=== PATIENT | female | born 1955 | race Caucasian/White ===

== ENCOUNTER → 2020-12-14 | Outpatient (CLI) | payer OTHER ==
[~2020-12-14] VITALS: Ht 160 cm; Wt 113.0 kg
[~2020-12-14] MED LIST: CATHETER FLUSH 10 ML SYR IV PRN; REGADENOSON 0.4 MG/5 ML SYR (LEXISCAN) IV ONE
[2020-12-14 08:57] VITALS: BP 171/88
--- NOTE | 2020-12-14 11:36 | STRESS TEST ---
DATE OF SERVICE: 12/14/2020 RESTING AND POST REGADENOSON TECHNETIUM-99M TETROFOSMIN SPECT CT IMAGING ORDERING PHYSICIAN: Dr. Dawn. PRIMARY PHYSICIAN: Dr. Hdez. CLINICAL DIAGNOSES: Shortness of breath. Baseline images were carried out after injection of 10.34 mCi of technetium-99m Tetrofosmin. This was followed by 0.4 mg regadenoson and 30.9 mCi of technetium-99m Tetrofosmin for stress imaging. The electrocardiogram showed atrial fibrillation throughout the study. Ventricular rate averaged at approximately 100 beats per minute. Isolated premature ventricular contractions were seen. The patient tolerated the procedure well and did not report significant symptoms. Review of images at rest and following stress indicates a transient anteroapical perfusion defect. Gated images show normal global left ventricular systolic function with normal regional wall motion. Left ventricular ejection fraction is calculated to be 73%. Left ventricular end diastolic volume is 81 mL. TID is absent (0.99). CONCLUSIONS: 1. The study is suggestive of a moderate amount of anteroapical ischemia. 2. Well preserved global left ventricular systolic function without significant regional wall motion abnormality and with an ejection fraction approximately 73%. Job ID: [id number] DocumentID: [id number] Dictated Date: 12/14/2020 11:19:11 Home Furnishings Sales Representative Date: 12/14/2020 11:36:16 Dictated By: ELSI DAWN MD, MA, FACP, FACC,
== END ==
LOC: CARD 07:45
PROVIDERS: ATTEND Internal Medicine Cardiovascular Disease
DX: R06.02 Shortness of breath (principal)
CPT/HCPCS: 78452; 93017; A9502

== ENCOUNTER → 2020-12-16 | Outpatient (CLI) | payer OTHER | LOC: CARD 10:22 | PROVIDERS: ATTEND Internal Medicine Cardiovascular Disease | DX: I48.0 Paroxysmal atrial fibrillation (principal); I51.7 Cardiomegaly | CPT/HCPCS: 93225; 93226; 93306 ==

== ENCOUNTER 2020-12-21 08:00 | Day surgery (SDC) | payer OTHER ==
[2020-12-21] VITALS (9 sets, daily range): BP systolic 116–191; BP diastolic 60–91
[~2020-12-21] VITALS: Ht 160 cm; Wt 114.0 kg
[2020-12-21 07:38] LABS: HEMOGLOBIN 14.1 g/dL (11.5-16.0); MEAN PLATELET VOLUME 10.2 fL (9.0-12.2); WHITE BLOOD COUNT 9.2 10^3/uL (4.3-11.0)
[2020-12-21 07:52] LABS: PROTHROMBIN TIME PATIENT 13.5 SEC (12.2-14.7)
[2020-12-21 08:00] LABS: ALANINE AMINOTRANSFERASE 14 U/L (0-55); ALBUMIN 3.9 GM/DL (3.2-4.5); ALKALINE PHOSPHATASE 118 U/L (40-136); BILIRUBIN,TOTAL 0.9 MG/DL (0.1-1.0); BUN/CREATININE RATIO 13; CALCIUM 8.8 MG/DL (8.5-10.1); CARBON DIOXIDE 21 MMOL/L (21-32); CHLORIDE 106 MMOL/L (98-107); CHOLESTEROL 196 MG/DL (< 200); CREATININE SERUM 0.75 MG/DL (0.60-1.30); GFR ESTIMATED > 60; GLUCOSE 113 MG/DL (70-105); HDL CHOLESTEROL 65 MG/DL (40-60); POTASSIUM 3.8 MMOL/L (3.6-5.0); SODIUM 142 MMOL/L (135-145); TOTAL PROTEIN 7.1 GM/DL (6.4-8.2); TRIGLYCERIDES 74 MG/DL (<150); VLDL CHOLESTEROL 15 MG/DL (5-40)
[~2020-12-21 08:00] MED LIST changes: +APIX5TAB PO; -CATHETER FLUSH 10 ML SYR IV PRN; +HEParin (CATH LAB) 2,000 ML IV ONE; +LIDOCAINE 1% INJ 20 ML 20 ML VIAL ONE; +METO-352 PO; +NAPR500T8 PO; +NS IV 1000 ML 1,000 ML IV SCH; +NS IV 1000 ML 1,000 ML ONE; -REGADENOSON 0.4 MG/5 ML SYR (LEXISCAN) IV ONE; +SERT-413 PO
[2020-12-21] MEDS ORDERED: fentaNYL INJECTION 100 MCG/2 ML AMP ONE (08:14)
[2020-12-21] MEDS ORDERED: MIDAZOLAM 5 MG/5 ML (VERSED) VIAL ONE (08:14)
--- NOTE | 2020-12-21 09:05 | Cardiac Procedure Note-CS/ASA ---
Pre-Procedure Note Pre-Op Procedure Note H&P Reviewed The H&P was reviewed, patient examined and no changes noted. Date H&P Reviewed: Dec 21, 2020 Time H&P Reviewed: 08:35 Conscious Sedation Pre-Proced Time 08:35 ASA Score 3 For ASA 3 and 4: Consider anesthesia and medical clearance. Also, for patients with a history of failed moderate sedation consider anesthesia. Airway Lungs Heart ASA score ASA 1: a normal healthy patient ASA 2: a patient with a mild systemic disease (mid diabetes, controlled hypertension, obesity ASA 3: a patient with a severe systemic disease that limits activity (angina, COPD, prior Myocardial infarction) ASA 4: a patient with an incapacitating disease that is a constant threat to life (CHF, renal failure) ASA 5: a moribund patient not expected to survive 24 hrs. (ruptured aneurysm) ASA 6: a declared brain- patient whose organs are being harvested. For emergent operations, add the letter E after the classification Mallampati Classification Grade 2 Sedation Plan Analgesia, Amnesia, Plan communicated to team members, Discussed options with patient/fam, Discussed risks with patient/fam The patient is an appropriate candidate to undergo the planned procedure, sedation, and anesthesia. The patient immediately re-assessed prior to indication. ELSI WALDROP MD FACP FAC CCDS Dec 21, 2020 09:05
--- NOTE | 2020-12-21 09:07 | Discharge Inst-Cardiology ---
Discharge Inst-Cardiac Discharge Medications Continued Medications: Apixaban (Eliquis) 5 Mg Tablet 5 MG PO BID, TAB Metoprolol Succinate (Toprol Xl) 50 Mg Tab.er.24h 50 MG PO DAILY, TAB Sertraline HCl (Sertraline HCl) 50 Mg Tablet 50 MG PO HS, TAB Discontinued Medications: Naproxen (Naproxen) 500 Mg Tablet.dr 500 MG PO BID PRN for PAIN-MILD (1-4), TAB ELSI WALDROP MD FACP FACC CCDS Dec 21, 2020 09:07
--- NOTE | 2020-12-21 09:08 | Discharge Inst-Post CATH ---
Discharge Inst-CATH/EP Post Cardiac Cath/EP D/C Inst Follow Up/Plan F/u with Dr Dawn in 2 weeks ACTIVITY * Go Home directly and rest. * Limit activity of the leg (or wrist if it was used) for 7 days including aerobics, swimming, jogging, bicycling, etc. * Restrict stair-climbing for 7 days if possible, if not, climb up with your no n-cath leg, then bring together on the same step. * Avoid lifting, pushing, pulling or excessive movement of the affected ext remity for 7 days. * Customary sexual activity may be resumed after 2 days-use caution not to use a position that strains or causes pain to the affected extremity. * No driving for 24 hours. * NO SMOKING. * Avoid straining for bowel movements for 7 days. * Gentle walking on level ground is allowed. * Returning to work will depend on the type of procedure and the results. Your doctor will discuss this with you. CALL YOUR DOCTOR FOR ANY OF THE FOLLOWING: *If bleeding from the puncture site occurs- Apply gentle pressure to site with clean cloth and call your doctor or EMS. * If a knot or lump forms under the skin, increases in size, or causes pain. * If bruising appears to be worsening or moving further down your leg instead of disappearing. * Temperature above 101 F. CARE OF YOUR GROIN INCISION; * Bruising or purple discoloration of the skin near the puncture site is common. * You may shower only, no bathtub bathing for 5 days. Be careful to avoid slipping as your leg may feel stiff. * If a closure device was used on your femoral artery, please see the attached guide regarding care of the device and your leg. * Leave dressing on FOR 24 hours. CARE OF YOUR WRIST INCISION; * Bruising or purple discoloration of the skin near the puncture site is common. * You may shower. * DO NOT submerge wrist. * Leave dressing on FOR 24 hours. ELSI DAWN MD FACP FAC CCDS Dec 21, 2020 09:08
[2020-12-21] MEDS ORDERED: PATIENT MAY USE OWN MEDS, ALL PO SCH (09:15)
[2020-12-21] MEDS ORDERED: NS IV 1000 ML 1,000 ML IV SCH (09:15)
--- NOTE | 2020-12-21 10:46 | CARDIAC CATHETERIZATION ---
DATE OF SERVICE: 12/21/2020 CARDIAC CATHETERIZATION REPORT INDICATION FOR PROCEDURE: The patient is a 65-year-old lady, who has chest discomfort and shortness of breath and a recent myocardial perfusion imaging study was indicative of anteroapical ischemia. Cardiac catheterization was carried out after having obtained an informed consent. DESCRIPTION OF PROCEDURE: She was brought to the cardiac catheterization laboratory in a fasting state. Right groin was prepared and draped in the usual sterile fashion. Lidocaine 1% was used for local anesthesia. Modified Seldinger technique was used to advance a 5-English sheath in the right femoral artery, 5-English JL3.5 catheter was used for left coronary angiography. A 5-English JR4 catheter was used for right coronary angiography, a 5-English JR4 catheter was also used for left heart catheterization and left ventricular angiography. Following removal of the catheters, angiography of the right femoral artery was carried out through the sheath. Mynx was used to achieve hemostasis. She tolerated the procedure well. HEMODYNAMICS: Left ventricular end-diastolic pressure following coronary angiography was 16 mmHg. There is no significant pressure gradient on pullback across the aortic valve. The ascending aortic pressure was 103/68 with a mean of 81 mmHg. CORONARY ANGIOGRAPHY: Left main coronary artery, left circumflex artery, left anterior descending artery, and right coronary artery do not exhibit angiographically significant disease. Right coronary artery is dominant. LEFT VENTRICULAR ANGIOGRAPHY: Left ventricular angiography was carried out in the right anterior oblique projection only. Global left ventricular systolic function appears to be normal. Left ventricular ejection fraction is estimated to be 55% to 60%. CONCLUSIONS: 1. No angiographically significant coronary artery disease seen on this study. 2. Normal global left ventricular systolic function with an ejection fraction of 55% to 60%. 3. Mild elevation of left ventricular end-diastolic pressure. DISCUSSION AND RECOMMENDATIONS: Based on the results of the study, it appears appropriate to continue a conservative approach. Risk factor modification has been reviewed. Outpatient followup is advised. Her myocardial perfusion imaging study appears to have been a false positive study. Job ID: [id number] DocumentID: [id number] Dictated Date: 12/21/2020 09:19:25 Director Of Music Date: 12/21/2020 10:45:17 Dictated By: ELSI WALDROP MD, MA, FACP, FACC,
== END 2020-12-21 12:10 | disposition home or self-care (01) ==
LOC: CATH 08:00 → SDC 09:24 → CATH 12:10
PROVIDERS: ATTEND Internal Medicine Cardiovascular Disease
DX: I48.0 Paroxysmal atrial fibrillation (principal); R07.89 Other chest pain; I10 Essential (primary) hypertension; E78.2 Mixed hyperlipidemia; E66.9 Obesity, unspecified; G47.33 Obstructive sleep apnea (adult) (pediatric); R94.31 Abnormal electrocardiogram [ECG] [EKG]; R60.0 Localized edema; G89.29 Other chronic pain; M25.561 Pain in right knee; Z79.01 Long term (current) use of anticoagulants; Z83.3 Family history of diabetes mellitus; Z68.42 Body mass index [BMI] 45.0-49.9, adult; Z79.1 Long term (current) use of non-steroidal anti-inflammatories (NSAID); Z79.899 Other long term (current) drug therapy; Z88.8 Allergy status to other drugs, medicaments and biological substances; Z90.49 Acquired absence of other specified parts of digestive tract; Z98.890 Other specified postprocedural states
CPT/HCPCS: 80053; 80061; 85027; 85610; 85730; 87081; 93458; C1760; C1894; 36415

== ENCOUNTER 2022-09-22 09:38 | Outpatient (CLI) | payer OTHER ==
[~2022-09-22 09:38] MED LIST changes: -HEParin (CATH LAB) 2,000 ML IV ONE; -LIDOCAINE 1% INJ 20 ML 20 ML VIAL ONE; -NS IV 1000 ML 1,000 ML IV SCH; -NS IV 1000 ML 1,000 ML ONE
== END 2022-09-22 10:00 ==
LOC: SLEEP 09:38
PROVIDERS: ATTEND Otolaryngology Otolaryngology/Facial Plastic Surgery
DX: G47.33 Obstructive sleep apnea (adult) (pediatric) (principal); Z86.79 Personal history of other diseases of the circulatory system
CPT/HCPCS: G0399

== ENCOUNTER 2022-11-28 19:50 | Emergency (ER) | payer OTHER ==
[~2022-11-28] VITALS: Ht 160 cm; Wt 109.0 kg
--- NOTE | 2022-11-28 20:50 | Diagnostic Imaging Report ---
PROCEDURE: CT head and CT cervical spine without contrast. TECHNIQUE: Multiple contiguous axial images were obtained through the brain and cervical spine without the use of intravenous contrast. Sagittal and coronal reformations through the cervical spine were then performed. Auto Exposure Controls were utilized during the CT exam to meet ALARA standards for radiation dose reduction. INDICATION: Fall, head injury, neck injury COMPARISON: None FINDINGS: CT HEAD: The ventricles and cortical sulci are mildly prominent from generalized parenchymal volume loss. There is no midline shift or mass effect. No acute intracranial hemorrhage or CT evidence of acute territorial ischemia is seen. The calvarium appears intact. There is hyperostosis frontalis. There is rtupawjd-wy-cjwsdi mucosal thickening in the ethmoid and maxillary sinuses. There is mild mucosal thickening in the sphenoid sinuses. CT cervical spine: Alignment of the cervical spine appears normal, although the patient's head is rotated to the left. There are arkvuysc-jb-nprljw degenerative changes at C4-C5, C5-C6 and C6-C7 with prominent anterior and posterior osteophytes. Osteophytosis does appear to cause spinal canal stenosis at C5-C6 and C6-C7. No acute fracture is seen in the cervical spine. No bony fragments or hyperdense fluid collections are seen. Soft tissues about the cervical spine demonstrate no acute abnormality. There is a right thyroid nodule measuring 2.6 cm. IMPRESSION: 1. No acute intracranial hemorrhage or CT evidence of acute territorial ischemia. 2. Advanced degenerative changes in the cervical spine with no acute fracture seen. 3. Paranasal sinus disease. 4. Right thyroid nodule. This warrants nonemergent ultrasound follow-up. Dictated by: Dictated on workstation # [id number]
--- NOTE | 2022-11-28 20:57 | Diagnostic Imaging Report ---
HISTORY: Fall with right chest pain COMPARISON: None TECHNIQUE: Frontal view of the chest FINDINGS: Lung volumes are mildly low. No consolidation is seen. Haziness over the lungs is thought to be due to overlying soft tissue. The cardiac silhouette is mildly prominent. No displaced fractures are identified. IMPRESSION: 1. No acute pulmonary abnormality seen. 2. Mild cardiomegaly, may be accentuated by technique. Dictated by: Dictated on workstation # [id number]
--- NOTE | 2022-11-28 21:16 | ED Fall/Injury ---
General Chief Complaint: Trauma-Non Activation Stated Complaint: FALL Nursing Triage Note: TO ED VIA [facility] FROM WORK WHERE SHE FELL SIDEWAYS OUT OF CHAIR AFTER IT BROKE AND HIT HEAD. SHE STATES INITIALLY BACK OF HEAD HURT, BUT NOW MORE RIGHT SIDE HEAD PAIN. C COLLAR IN PLACE ON ARRIVAL TO ER. C/O LEFT CHRONIC LEFT KNEE PAIN THAT IS WORSE NOW, RIGHT RIB PAIN, AND BACK PAIN. DENIES INITIAL LOC, BUT STAFF STATE SHE "PASSED OUT" AFTER WARDS FOR A SHORT AMOUNT OF TIME. HX AFIB AND TAKES ELIQUIS BID. Source: patient, EMS Exam Limitations: no limitations History of Present Illness Date Seen by Provider: Nov 28, 2022 Time Seen by Provider: 19:55 Initial Comments Patient is a 67-year-old female who presents to the emergency department for evaluation of head and right chest after she fell sideways out of a chair at work. She did not lose consciousness at the time of the injury but reportedly "passed out" shortly afterwards per fellow staff at her work. She states her only main pain is a generalized headache. States she also has some mild left knee pain but states this is chronic. Denies any other pain or injury at this time. Allergies and Home Medications Allergies Coded Allergies: diphenhydramine (Unverified Allergy, Unknown, 12/14/20) phenytoin (Verified Allergy, Unknown, 11/28/22) Patient Home Medication List Home Medication List Reviewed: Yes Apixaban (Eliquis) 5 Mg Tablet, 5 MG PO BID, (Reported) Entered as Reported by: ALY TAPIA on 12/21/20734 Metoprolol Succinate (Toprol Xl) 50 Mg Tab.er.24h, 50 MG PO DAILY, (Reported) Entered as Reported by: ALY TAPIA on 12/21/20734 Sertraline HCl (Sertraline HCl) 50 Mg Tablet, 50 MG PO HS, (Reported) Entered as Reported by: ALY TAIPA on 12/21/20734 Review of Systems Review of Systems Constitutional: no symptoms reported Eyes: No Symptoms Reported Ears, Nose, Mouth, Throat: no symptoms reported Respiratory: no symptoms reported Cardiovascular: see HPI, chest pain Gastrointestinal: no symptoms reported Genitourinary: no symptoms reported Musculoskeletal: no symptoms reported Skin: no symptoms reported Psychiatric/Neurological: See HPI, Headache Past Fnautyc-Ffbuev-Yjmiro Hx Patient Social History Tobacco Use?: No Substance use?: No Alcohol Use?: No Immunizations Up To Date Influenza Vaccine Up-to-Date: Yes; Up-to-Date COVID19 Vaccine Financial Counselor: [place] Past Medical History Section, Gallbladder Respiratory: No Currently Using CPAP: No Currently Using BIPAP: No Cardiac: Yes Atrial Fibrillation, High Cholesterol, Hypertension Neurological: No Genitourinary: No Gastrointestinal: No Cancer: No Physical Exam Vital Signs Vital Signs - First Documented 11/28/22 19:52 Temp 36.1 Pulse 95 Resp 16 B/P (MAP) 163/98 (119) O2 Delivery Room Air Capillary Refill : Less Than 3 Seconds Height, Weight, BMI Height: '" Weight: lbs. oz. kg; 42.00 BMI Method: General Appearance: WD/WN, no apparent distress HEENT: PERRL/EOMI, normal ENT inspection, TMs normal, pharynx normal Neck: non-tender, full range of motion, supple, normal inspection Cardiovascular: regular rate, rhythm Respiratory: lungs clear, normal breath sounds, no respiratory distress, no accessory muscle use Gastrointestinal: normal bowel sounds, non tender, soft Neurologic/Psychiatric: no motor/sensory deficits, alert, normal mood/affect, oriented x 3 Skin: normal color, warm/dry Mild anterolateral right chest wall tenderness to palpation Osborne Coma Score Best Eye Response: (4) Open Spontaneously Best Verbal Response: (5) Oriented Best Motor Response: (6) Obeys Commands Faustina Total: 15 Progress/Results/Core Measures Results/Orders My Orders Orders - MASSIEL REYNOSO APRN Chest 1 View, Ap/Pa Only (11/28/22 20:00) Ct Head/Cervical Spine Wo (11/28/22 20:00) Vital Signs/I&O 11/28/22 11/28/22 19:52 19:52 Temp 36.1 Pulse 95 Resp 16 B/P (MAP) 163/98 (119) O2 Delivery Room Air Room Air Blood Pressure Mean: 119 Progress Progress Note : Progress Note Patient is nontoxic and well-hydrated on exam. No focal neurologic deficits appreciated. Vital signs are reassuring. No significant hematoma or crepitus noted to the scalp. Patient does have a c-collar on that was placed by EMS. No adventitious lung sounds or increased work of breathing noted. Order placed for head/C-spine CT as well as chest x-ray. Head/C-spine CT acutely negative. There is an incidental notation of a thyroid nodule but patient states she is already aware of this and is being monitored by her PCP. Chest x-ray is acutely negative. Will discharge home with recommendations for supportive care and close follow-up with PCP. Return precautions for urgent symptomology discussed. Patient verbalized understanding. Departure Impression Primary Impression: Closed head injury Qualified Codes: S09.90XA - Unspecified injury of head, initial encounter Disposition: 01 HOME, SELF-CARE Condition: Stable Departure-Patient Inst. Decision time for Depature: 21:15 Patient Instructions: Minor Head Injury, Adult ED MASSIEL REYNOOS APRN Nov 28, 2022 21:16
[2022-11-28 21:27] VITALS: BP 146/72
== END 2022-11-28 21:27 | disposition home or self-care (01) ==
LOC: EDUNIT# 19:50 → ER 19:51
DX: S09.90XA Unspecified injury of head, initial encounter (principal); R07.89 Other chest pain; I48.91 Unspecified atrial fibrillation; Z79.01 Long term (current) use of anticoagulants; R40.2362 Coma scale, best motor response, obeys commands, at arrival to emergency department; R40.2142 Coma scale, eyes open, spontaneous, at arrival to emergency department; R40.2252 Coma scale, best verbal response, oriented, at arrival to emergency department; W07.XXXA Fall from chair, initial encounter; W22.8XXA Striking against or struck by other objects, initial encounter; Y92.59 Other trade areas as the place of occurrence of the external cause; Y99.0 Civilian activity done for income or pay
CPT/HCPCS: 70450; 71045; 72125

== ENCOUNTER → 2023-03-12 | Outpatient (CLI) | payer OTHER, MEDICARE ==
[~2023-03-12] VITALS: Ht 160 cm; Wt 111.4 kg
[~2023-03-12] MED LIST changes: +LIDOCAINE 1% INJ 10 ML VIAL INJ ONE
--- NOTE | 2023-03-12 13:23 | Diagnostic Imaging Report ---
Indication: Right lobe thyroid nodule. Patient presents for ultrasound-guided fine-needle aspiration. Patient brought to the procedure and placed on table in the supine position. Ultrasound imaging of the right neck was performed to evaluate appropriate entry site. The right neck was then prepped and draped in usual sterile fashion. Small amount of 1% lidocaine was utilized for local anesthesia. 4 passes were made into the dominant solid nodule right lobe of thyroid utilizing 25-gauge needles and fine-needle aspiration technique. Hemostasis was obtained. Patient tolerated the procedure well and left the Department stable condition. IMPRESSION: Successful ultrasound-guided fine-needle aspiration of the dominant solid nodule right lobe of thyroid. Pathology results are currently pending. Dictated by: Dictated on workstation # [id number]
== END ==
LOC: RAD 10:24
PROVIDERS: ATTEND Surgery
DX: E04.1 Nontoxic single thyroid nodule (principal)

== ENCOUNTER → 2023-05-04 | Day surgery (SDC) | payer OTHER, MEDICARE ==
[~2023-05-04] VITALS: Ht 160 cm; Wt 112.9 kg
[2023-05-04] VITALS (7 sets, daily range): BP systolic 126–143; BP diastolic 63–93
[~2023-05-04] MED LIST changes: +CPAP; -LIDOCAINE 1% INJ 10 ML VIAL INJ ONE; +NS IV 1000 ML 1,000 ML IV SCH; +NS IV 1000 ML 1,000 ML ONE; +proPOfol 200 MG/20 ML (DIPRIVAN) VIAL IV ONE
[2023-05-04 13:19] LABS: HEMATOCRIT 39 % (35-52); HEMOGLOBIN 13.1 g/dL (11.5-16.0); MEAN CORPUSCULAR HEMOGLOBIN 32 pg (25-34); MEAN CORPUSCULAR HGB CONC 33 g/dL (32-36); MEAN CORPUSCULAR VOLUME 96 fL (80-99); MEAN PLATELET VOLUME 10.1 fL (9.0-12.2); PLATELET COUNT 280 10^3/uL (130-400); WHITE BLOOD COUNT 8.2 10^3/uL (4.3-11.0)
[2023-05-04 13:41] LABS: ALBUMIN 3.9 GM/DL (3.2-4.5); BILIRUBIN,TOTAL 1.5 MG/DL (0.1-1.0); CALCIUM 9.4 MG/DL (8.5-10.1); CREATININE SERUM 0.84 MG/DL (0.60-1.30); POTASSIUM 3.9 MMOL/L (3.6-5.0); TOTAL PROTEIN 6.3 GM/DL (6.4-8.2)
[2023-05-04 13:43] LABS: INR 1.1 (0.8-1.4); PROTHROMBIN TIME PATIENT 14.8 SEC (12.2-14.7)
--- NOTE | 2023-05-04 15:12 | Anesthesia-General Post-Op ---
MAC Patient Condition Mental Status/LOC: Same as Preop Cardiovascular: Satisfactory Nausea/Vomiting: Absent Respiratory: Satisfactory Pain: Controlled Complications: Absent Post Op Complications Complications None Follow Up Care/Instructions Patient Instructions None needed. Anesthesiology Discharge Order Discharge Order Patient is doing well, no complaints, stable vital signs, no apparent adverse anesthesia problems. No complications reported per nursing. AYDEN MONTEIRO CRNA May 04, 2023 15:12
--- NOTE | 2023-05-04 20:51 | OPERATIVE REPORT ---
DATE OF SERVICE: 05/04/2023 PREOPERATIVE DIAGNOSIS: Atrial fibrillation. POSTOPERATIVE DIAGNOSIS: Sinus rhythm. PROCEDURE: External electrical cardioversion. The patient is a 67-year-old lady who has atrial fibrillation. She has been fully anticoagulated without any interruption for well over a month. External electrical cardioversion was carried out today after having obtained an informed consent. The nurse computer scientist provided short-acting anesthesia under which a 150 joules of synchronized shock was delivered through external patches, which restored sinus rhythm. She tolerated the procedure well. Job ID: [id number] DocumentID: [id number] Dictated Date: 05/04/2023 15:04:21 Financial Reporting Accountant Date: 05/04/2023 20:44:00 Dictated By: ELSI WALDROP MD; RACHEAL; FACP; FACC;
== END ==
LOC: CATH 12:36
PROVIDERS: ATTEND Internal Medicine Cardiovascular Disease
DX: I48.0 Paroxysmal atrial fibrillation (principal); I48.20 Chronic atrial fibrillation, unspecified; E66.01 Morbid (severe) obesity due to excess calories; G47.33 Obstructive sleep apnea (adult) (pediatric); I10 Essential (primary) hypertension; E78.5 Hyperlipidemia, unspecified; G89.29 Other chronic pain; M25.561 Pain in right knee; E78.2 Mixed hyperlipidemia; R94.31 Abnormal electrocardiogram [ECG] [EKG]; Z68.41 Body mass index [BMI] 40.0-44.9, adult; Z99.81 Dependence on supplemental oxygen
CPT/HCPCS: 36415; 80053; 80061; 85027; 85610; 85730; 87081; 92960; 93005